=== PATIENT | male | born 1960 | race Caucasian/White ===

== ENCOUNTER 2024-11-02 18:27 | Observation (INO) ==
[2024-11-02 19:03] LABS: Basophils # (auto) 0.08 K/uL (0.00-0.20); Basophils % (auto) 0.9 %; Eosinophils # (auto) 0.05 K/uL (0.00-0.50); Eosinophils % (auto) 0.5 %; Hematocrit (blood only) 57.1 % (42.0-52.0); Hemoglobin 19.7 g/dl (14.0-18.0); Immature Granulocytes # (auto) 0.11 K/uL (0.01-0.20); Immature Granulocytes % (auto) 1.2 %; Lymphocytes # (auto) 1.45 K/uL (1.20-3.40); Lymphocytes % (auto) 15.7 %; Mean Corpuscular Hemoglobin 31.1 pg (25.0-34.0); Mean Corpuscular Hgb Conc 34.5 g/dL (32.0-36.0); Mean Corpuscular Volume 90.1 fL (80.0-100.0); Mean Platelet Volume 9.4 fL (9.4-12.4); Monocytes # (auto) 0.82 K/uL (0.11-0.59); Monocytes % (auto) 8.9 %; Neutrophils % (auto) 72.8 %; Platelet Count 228 K/uL (130-400); RDW Coefficient of Variation 13.2 % (11.5-14.5); RDW Standard Deviation 43.6 fL (36.4-46.3); Red Blood Count 6.34 M/uL (4.70-6.10); White Blood Count 9.21 K/ul (4.8-10.8)
[2024-11-02 19:24] LABS: Albumin Globulin Ratio 1.5 (0.9-2); Albumin Level 4.7 gm/dl (3.4-5.0); BUN Creatinine Ratio 24.5 (10-20); Bilirubin,Total 1.4 mg/dl (0.2-1.0); Calcium 10.2 mg/dl (8.6-10.3); Creatinine Clr Calc Pharmacy 92.9 ml/min; Globulin 3.1 gm/dl (2.5-4.0); Potassium 4.4 mmol/L (3.5-5.1); Total Protein 7.8 gm/dl (6.0-8.3)
[2024-11-02] MEDS: SODIUM CHLORIDE 0.9% 1,000 ML IV ONE (19:45)
--- NOTE | 2024-11-02 19:46 | Emergency Department Note ---
Impression & Plan SBO (small bowel obstruction), Diverticulosis, Vomiting, Acute dehydration ED Provider Note NAME: ADRIANA DODD AGE: 64 SEX: M : 1960 ARRIVES VIA: Walk-In INFORMANT: Patient, ED PROVIDER(S): Jeronimo Armstrong DO CHIEF COMPLAINT: Vomiting HPI: The patient is a 64-year-old male who presented to the emergency department for an evaluation of nausea vomiting. The patient states he has had lower abdominal pain over the last 24 hours. He is noticed nausea as well as vomiting. The patient denies having any fever. He denies having any dysuria or frequency. He denies having any back pain or chest pain. He said no recent trauma. The patient also is very anxious. ROS: See above HPI for pertinent positives & negatives. A total of 10 systems reviewed and were otherwise negative. PAST MEDICAL HISTORY: See Below PAST SURGICAL HISTORY: See Below FAMILY HISTORY: See Below SOCIAL HISTORY: See Below HOME MEDICATIONS: See Below ALLERGIES: See Below VITALS: See Below PHYSICAL EXAMINATION: GENERAL: Patient is awake alert in no acute distress patient is resting comfortably and showing no signs of anxiety EYES: The conjunctivae are clear. The pupils are round and reactive. EARS, NOSE, MOUTH AND THROAT: The nose is without any evidence of any deformity. Mucous membranes are moist. Tongue is midline. NECK: The neck is nontender and supple. RESPIRATORY: Normal respiratory effort is noted there is no evidence of wheezing rhonchi or rales CARDIOVASCULAR: Regular rate and rhythm noted there no murmurs rubs or gallops normal S1 normal S2. GASTROINTESTINAL: The abdomen is soft and moderately distended. There is no guarding rigidity noted. MUSCULOSKELETAL/EXTREMITIES: There is no evidence of gross deformity full range of motion is noted in the hips and shoulders. SKIN: There is no obvious evidence of any rash. There are no petechiae, pallor or cyanosis noted. NEUROLOGIC: Patient is awake alert and oriented x3. Gait was steady. MEDICAL DECISION MAKING: The patient is a 64-year-old male who presented to the emergency department for an evaluation of nausea and vomiting. The patient complained of lower abdominal pain. He has no surgical history. He has no history of bowel obstruction. He was also very anxious. He was treated with IV fluids and IV antiemetics. I discussed the patient's laboratory and radiographic studies with him. He does appear to have dilated loops of small bowel that could be consistent with bowel obstruction. He was not actively vomiting so I did not order an NG tube. I discussed the patient's condition with the on-call [facility] hospitalist. They have agreed to evaluate the patient in the emergency department for further management and disposition. Triage Nursing notes reviewed. Prior medical records reviewed Vital Signs: reviewed and remarkable for no significant abnormalities Differential diagnosis: Gastroenteritis, food borne illness, infections, appendicitis, diverticulitis, inflammatory bowel disease, obstruction, GI bleed, biliary pathology, volvulus, as well as other pathologies. ER treatment provided: See below Diagnostics interpreted by me: ECG: none Cardiac Monitoring: An order was placed for continuous cardiac monitoring. The monitor shows a rate of 76 bpm with sinus rhythm. Laboratory studies: As stated above and show below. Imaging studies: See below. Radiographic imaging was reviewed by myself Consultation(s): I discussed this case with Dr. Raeves who is on-call for the [facility] Hospitalist group. Past Med/Surg History Problem List (Updated 11/02/24 @ 23:35 by Jeronimo Armstrong DO) Acute dehydration (Acute) Vomiting (Acute) Diverticulosis (Acute) SBO (small bowel obstruction) (Acute) Social History Smoking Status: Never smoker Feels Safe at Home: Yes Results & Data (ED) Vital Signs Vital Signs - 24 hr 11/02/24 18:36 11/02/24 19:44 11/02/24 21:00 Temperature 37.2 C Temperature Source Temporal Artery Scan Pulse Rate 87 Pulse Rate [Finger] 86 94 H Pulse Rhythm [Finger] Regular Pulse Strength [Finger] Normal Respiratory Rate 16 22 20 Respiratory Effort / Characteristics Non-Labored Spontaneous Non-Labored Spontaneous Respiratory Depth Normal Normal Respiratory Pattern Regular Blood Pressure 130/88 Blood Pressure [Right Arm] 142/100 H 134/93 Blood Pressure Mean 102 Blood Pressure Mean [Right Arm] 114 106 Blood Pressure Position Sitting Blood Pressure Position [Right Arm] Lying Pulse Oximetry 92 93 93 Oxygen Delivery Method Room Air Room Air Room Air Sepsis Recent Fever Within 48 Hours No Sepsis New/Unexplained Change in Mental Status N/A Sepsis Action Taken by Nursing No Action Required 11/02/24 23:00 Temperature Temperature Source Pulse Rate Pulse Rate [Finger] 76 Pulse Rhythm [Finger] Regular Pulse Strength [Finger] Normal Respiratory Rate 17 Respiratory Effort / Characteristics Non-Labored Respiratory Depth Normal Respiratory Pattern Regular Blood Pressure Blood Pressure [Right Arm] 108/82 Blood Pressure Mean Blood Pressure Mean [Right Arm] 90 Blood Pressure Position Blood Pressure Position [Right Arm] Lying Pulse Oximetry 92 Oxygen Delivery Method Room Air Sepsis Recent Fever Within 48 Hours Sepsis New/Unexplained Change in Mental Status Sepsis Action Taken by Assisted Medications Current Medication List: was personally reviewed by me Laboratory Data Attestation: I reviewed the patient's lab results. 11/02/24 18:46 11/02/24 18:46 Lab Results 11/02/24 Range/Units 18:46 WBC 9.21 (4.8-10.8) K/ul RBC 6.34 H (4.70-6.10) M/uL Hgb 19.7 H (14.0-18.0) g/dl Hct 57.1 H (42.0-52.0) % MCV 90.1 (80.0-100.0) fL MCH 31.1 (25.0-34.0) pg MCHC 34.5 (32.0-36.0) g/dL RDW Std Deviation 43.6 (36.4-46.3) fL RDW Coeff of Zoila 13.2 (11.5-14.5) % Plt Count 228 (130-400) K/uL MPV 9.4 (9.4-12.4) fL Immature Gran % (Auto) 1.2 % Neut % (Auto) 72.8 % Lymph % (Auto) 15.7 % [place] % (Auto) 8.9 % Eos % (Auto) 0.5 % Baso % (Auto) 0.9 % Neut # (Auto) 6.70 H (1.40-6.50) K/uL Lymph # (Auto) 1.45 (1.20-3.40) K/uL [place] # (Auto) 0.82 H (0.11-0.59) K/uL Eos # (Auto) 0.05 (0.00-0.50) K/uL Baso # (Auto) 0.08 (0.00-0.20) K/uL Immature Gran # (Auto) 0.11 (0.01-0.20) K/uL Sodium 141 (136-145) mmol/L Potassium 4.4 (3.5-5.1) mmol/L Chloride 104 (98-107) mmol/L Carbon Dioxide 30 (21-32) mmol/L Anion Gap 7 (3-11) BUN 25 H (6-23) mg/dl Creatinine 1.02 (0.6-1.4) mg/dl Est Cr Clr Drug Dosing 92.9 ml/min eGFR 82.07 BUN/Creatinine Ratio 24.5 H (10-20) Glucose 144 H (70-99(Fasting)) mg/dl Calcium 10.2 (8.6-10.3) mg/dl Total Bilirubin 1.4 H (0.2-1.0) mg/dl AST 26 (13-39) U/L ALT 35 (7-52) U/L Alkaline Phosphatase 57 (34-104) U/L Total Protein 7.8 (6.0-8.3) gm/dl Albumin 4.7 (3.4-5.0) gm/dl Globulin 3.1 (2.5-4.0) gm/dl Albumin/Globulin Ratio 1.5 (0.9-2) Lipase 51 (11-82) U/L Administered Medications Discontinued Medications Diphenhydramine HCl (Diphenhydramine 50 Mg/Ml Vial) 25 mg IV NOW STA Stop: 11/02/24 19:43 Last Admin: 11/02/24 20:13 Dose: Not Given Documented By: ANMOL Sodium Chloride (Nss) 1,000 mls @ 999 mls/hr IV .Q1H1M ONE Stop: 11/02/24 20:38 Last Infusion: 11/02/24 22:06 Dose: Infused Documented By: Admin: 11/02/24 19:45 Dose: 999 mls/hr Documented By: SHIMON Ioversol (Optiray 320 100ml) 94 ml IV ONCE ONE Stop: 11/02/24 20:17 Last Admin: 11/02/24 20:16 Dose: 94 ml Documented By: TC Ondansetron HCl (Ondansetron Inj 2 Mg/Ml 2 Ml Vial) 4 mg IV NOW STA Stop: 11/02/24 19:39 Last Admin: 11/02/24 19:55 Dose: 4 mg Documented By: ANMOL Imaging Data Attestation: I personally reviewed and interpreted this imaging study as follows: My Impression: See T the abdomen and pelvis was obtained in the emergency department. My interpretation is no free air, dilated stomach as well as dilated loops of small bowel are noted, final report below. Radiologist's Impression: Abdomen/Pelvis CT 11/02/24 19:38 Exam(s): CT ABDOMEN + PELVIS With Contrast IV Amt: 94 ml opti 320 EXAM: CT Abdomen and Pelvis With Intravenous Contrast CLINICAL HISTORY: Reason for exam: Vomiting. TECHNIQUE: Axial computed tomography images of the abdomen and pelvis with intravenous contrast. CTDI is 28.28 mGy and DLP is 1535.53 mGy-cm. Automated exposure control was utilized for the study. A dose lowering technique was utilized adhering to the principles of ALARA. CONTRAST: Patient received 94 ml Optiray 320 of IV contrast COMPARISON: No relevant prior studies available. FINDINGS: Lung bases: Trace amount of scattered subsegmental atelectasis in the lung bases. ABDOMEN: Liver: Mild fatty infiltration of the liver. No focal liver lesion is seen. Gallbladder and bile ducts: Noncalcified gallstones measuring up to 2.2 cm within a nondilated gallbladder. No pericholecystic inflammation is seen. Pancreas: Unremarkable. No mass. No ductal dilation. Spleen: Unremarkable. No splenomegaly. Adrenals: Unremarkable. No mass. Kidneys and ureters: Unremarkable. No solid mass. No hydronephrosis. Stomach and bowel: There are scattered gas fluid levels within distended but nondilated proximal small bowel and stomach. The distal small bowel is completely decompressed. No abrupt transition point is identified. There is diverticulosis of the left and sigmoid colon without evidence of acute diverticulitis. No pneumoperitoneum, free fluid, or abscess. The appendix is normal. PELVIS: Appendix: See above. Bladder: Unremarkable. No mass. Reproductive: Unremarkable as visualized. ABDOMEN and PELVIS: Intraperitoneal space: See above. Bones/joints: Mild degenerative changes in the spine. No acute fracture or subluxation is seen. Soft tissues: Unremarkable. Vasculature: Unremarkable. No abdominal aortic aneurysm. Lymph nodes: Unremarkable. No enlarged lymph nodes. IMPRESSION: 1. There are scattered gas fluid levels within distended but nondilated proximal small bowel and stomach. The distal small bowel is completely decompressed. No abrupt transition point is identified. Consider ileus and/or enteritis versus mid small bowel obstruction. 2. Noncalcified gallstones measuring up to 2.2 cm within a nondilated gallbladder. No pericholecystic inflammation is seen. 3. There is diverticulosis of the left and sigmoid colon without evidence of acute diverticulitis. No pneumoperitoneum, free fluid, or abscess. The appendix is normal. 4. Nonobstructive 3 mm calcific calculus in the upper pole the left kidney. No hydronephrosis or ureterolithiasis is seen. Electronically signed by: Al Mckeon MD 11/02/24 23:12 PM Discharge Plan Visit Data Chief Complaint: Vomiting Stated Complaint: GI ISSUES, ANXIETY, CRAMPING, VOMT ED Provider: Jeronimo Armstrong Discharge Problem: SBO (small bowel obstruction), Diverticulosis, Vomiting, Acute dehydration Patient Disposition: Being Evaluated by Hospitalist Forms Stand Alone Forms: [facility] Referrals Referrals: PCP,NO [Primary Care Provider] - Discharge Problem: Vomiting Qualifiers: Vomiting type: unspecified Nausea presence: with nausea Qualified Code(s): R 11.2 - Nausea with vomiting, unspecified
[2024-11-02] MEDS: ONDANSETRON INJ 2 MG/ML 2 ML VIAL IV STA (19:55)
[2024-11-02] MEDS: diphenhydrAMINE 50 MG/ML VIAL IV STA (20:13)
[2024-11-02] MEDS: OPTIRAY 320 100ml IV ONE (20:16)
--- NOTE | 2024-11-02 23:13 | CT Scan Report ---
Exam(s): CT ABDOMEN + PELVIS With Contrast IV Amt: 94 ml opti 320 EXAM: CT Abdomen and Pelvis With Intravenous Contrast CLINICAL HISTORY: Reason for exam: Vomiting. TECHNIQUE: Axial computed tomography images of the abdomen and pelvis with intravenous contrast. CTDI is 28.28 mGy and DLP is 1535.53 mGy-cm. Automated exposure control was utilized for the study. A dose lowering technique was utilized adhering to the principles of ALARA. CONTRAST: Patient received 94 ml Optiray 320 of IV contrast COMPARISON: No relevant prior studies available. FINDINGS: Lung bases: Trace amount of scattered subsegmental atelectasis in the lung bases. ABDOMEN: Liver: Mild fatty infiltration of the liver. No focal liver lesion is seen. Gallbladder and bile ducts: Noncalcified gallstones measuring up to 2.2 cm within a nondilated gallbladder. No pericholecystic inflammation is seen. Pancreas: Unremarkable. No mass. No ductal dilation. Spleen: Unremarkable. No splenomegaly. Adrenals: Unremarkable. No mass. Kidneys and ureters: Unremarkable. No solid mass. No hydronephrosis. Stomach and bowel: There are scattered gas fluid levels within distended but nondilated proximal small bowel and stomach. The distal small bowel is completely decompressed. No abrupt transition point is identified. There is diverticulosis of the left and sigmoid colon without evidence of acute diverticulitis. No pneumoperitoneum, free fluid, or abscess. The appendix is normal. PELVIS: Appendix: See above. Bladder: Unremarkable. No mass. Reproductive: Unremarkable as visualized. ABDOMEN and PELVIS: Intraperitoneal space: See above. Bones/joints: Mild degenerative changes in the spine. No acute fracture or subluxation is seen. Soft tissues: Unremarkable. Vasculature: Unremarkable. No abdominal aortic aneurysm. Lymph nodes: Unremarkable. No enlarged lymph nodes. IMPRESSION: 1. There are scattered gas fluid levels within distended but nondilated proximal small bowel and stomach. The distal small bowel is completely decompressed. No abrupt transition point is identified. Consider ileus and/or enteritis versus mid small bowel obstruction. 2. Noncalcified gallstones measuring up to 2.2 cm within a nondilated gallbladder. No pericholecystic inflammation is seen. 3. There is diverticulosis of the left and sigmoid colon without evidence of acute diverticulitis. No pneumoperitoneum, free fluid, or abscess. The appendix is normal. 4. Nonobstructive 3 mm calcific calculus in the upper pole the left kidney. No hydronephrosis or ureterolithiasis is seen. Electronically signed by: Al Mckeon MD 11/02/24 23:12 PM
[2024-11-03] MEDS: LORazepam 1 MG/1 ML SYR ED Inj Use IV STA (00:12)
--- NOTE | 2024-11-03 01:52 | History & Physical Report ---
Date of Service November 03, 2024 Assessment & Plan (1) SBO (small bowel obstruction): Plan: 64-year-old male with past medical history significant for hyperlipidemia, hypertension, BPH, anxiety,concussion, PTSD, mood disorder, presents with nausea, vomiting and abdominal pain. Patient states having abdominal pain for last couple of weeks but today it got very severe. Pain is in the lower abdomen. No radiation. Today vomited 3 times.Currently with the the medications pain and nausea improved. He had a bowel movement in the ER. No fevers. No chest pain or shortness of breath. No cough. No headache. No runny nose or sore throat. No headache. Vision is okay. Ambulates okay. Currently resting comfortably and hemodynamically stable. Possible small bowel obstruction Presents with nausea vomiting and abdominal pain Acute dehydration CT scan showing possible enteritis/ileus versus obstruction Patient has no abdominal surgeries Currently symptoms improved with meds N.p.o., IV fluids, pain meds as needed, antiemetics as needed Medical floor Surgery consult for further recommendations Hypertension On losartan, prazosin and propranolol Anxiety PTSD Mood disorder Continue home medications. Prediabetes will follow hba1c levels BPH On prazosin and Proscar Hyperlipidemia On statin DVT prophylaxis Lovenox Disposition Medical floor Full code. History of Present Illness Chief Complaint: Nausea vomiting and abdominal pain Primary Care Provider: NO PCP 64-year-old male with past medical history significant for hyperlipidemia, hypertension, prediabetes,BPH, anxiety, concussion, PTSD, mood disorder, presents with nausea, vomiting and abdominal pain. Patient states having abdominal pain for last couple of weeks but today it got very severe. Pain is in the lower abdomen. No radiation. Today vomited 3 times.Currently with the the medications pain and nausea improved. He had a bowel movement in the ER. No fevers. No chest pain or shortness of breath. No cough. No headache. No runny nose or sore throat. No headache. Vision is okay. Ambulates okay. Currently resting comfortably and hemodynamically stable. Past medical history. As mentioned above Past surgical history. Rhinoplasty. Bronchoscopy. Social history. No smoking. Alcohol rarely. No drugs. Family history. Father had CHF. Mother had COPD. Allergies Allergy/AdvReac Type Severity Reaction Status Date / Time No Known Allergies Allergy Verified 11/03/24 01:34 Home Medications Medication Instructions Recorded Confirmed Type armodafinil 250 mg tablet 250 mg PO DAILY 11/03/24 11/03/24 History atorvastatin 20 mg tablet 20 mg PO HS 11/03/24 11/03/24 History buspirone 10 mg tablet 10 mg PO BID 11/03/24 11/03/24 History cyclosporine 0.05 % eye drops in a 2 drp OPB BID 11/03/24 11/03/24 History dropperette (Restasis) donepezil 10 mg tablet 20 mg PO HS 11/03/24 11/03/24 History finasteride 5 mg tablet 5 mg PO DAILY 11/03/24 11/03/24 History hydroxyzine HCl 50 mg tablet 50 mg PO Q8H PRN Anxiety 11/03/24 11/03/24 History lorazepam 1 mg tablet 1.5 mg PO QPM 11/03/24 11/03/24 History losartan 25 mg tablet 25 mg PO DAILY 11/03/24 11/03/24 History meloxicam 15 mg tablet 15 mg PO DAILY 11/03/24 11/03/24 History memantine 10 mg tablet 10 mg PO BID 11/03/24 11/03/24 History ondansetron 8 mg disintegrating 8 mg PO Q8H 11/03/24 11/03/24 History tablet prazosin 1 mg capsule 2 mg PO AMPM 11/03/24 11/03/24 History propranolol 20 mg tablet 20 mg PO AMPM 11/03/24 11/03/24 History quetiapine 50 mg tablet 50 mg PO HS 11/03/24 11/03/24 History quetiapine 50 mg tablet 50 mg PO HS 11/03/24 11/03/24 History testosterone cypionate 200 mg/mL 100 mg IM WK 11/03/24 11/03/24 History intramuscular oil Past Med/Surg History Problem List Acute dehydration (Acute) Vomiting (Acute) Diverticulosis (Acute) SBO (small bowel obstruction) (Acute) Social History Smoking Status: Never smoker Hx Alcohol Use: Yes Alcohol type: beer Hx Substance Use: Yes Last Used Substance: Days (ago) Last Used Substance Other:: about 1 ago. Substance Use Type Other:: CBD Gummy per report. Preferred Language: Persian Communication Ability: Effective Can Pusher Required: No Beliefs That Will Affect Care: None Feels Safe at Home: Yes Assistive Devices: None Review of Systems Review of Systems: All systems reviewed & are unremarkable except as noted in HPI & below Physical Exam Physical Exam: General- Not in distress Head- atraumatic Eyes- PERRL. ENT- oropharynx clear Neck- supple, no JVD. Lungs- clear to auscultation no wheezing or crackles Heart- regular rate and rhythm; no murmur, no gallop. Abdomen- normal bowel sounds, soft, mild discomfort, no distension Extremities- no pretibial edema, no erythema seen Neuro- alert, oriented PERRL, no facial palsy; no dysarthria; moves extremities Results & Data Results & Data Vital Signs (Past 12 Hours) Vital Signs Temp Pulse Pulse Resp BP BP Pulse Ox 11/03/24 01:00 77 18 130/92 91 11/02/24 23:00 76 17 108/82 92 11/02/24 21:00 94 H 20 134/93 93 11/02/24 19:44 86 22 142/100 H 93 11/02/24 18:36 37.2 C 87 16 130/88 92 O2 Del Method 11/03/24 01:00 Room Air 11/02/24 23:00 Room Air 11/02/24 21:00 Room Air 11/02/24 19:44 Room Air 11/02/24 18:36 Room Air Diagnostic Findings Laboratory Results WBC 9.21 K/ul (4.8-10.8) 11/02/24 18:46 RBC 6.34 M/uL (4.70-6.10) H 11/02/24 18:46 Hgb 19.7 g/dl (14.0-18.0) H 11/02/24 18:46 Hct 57.1 % (42.0-52.0) H 11/02/24 18:46 MCV 90.1 fL (80.0-100.0) 11/02/24 18:46 MCH 31.1 pg (25.0-34.0) 11/02/24 18:46 MCHC 34.5 g/dL (32.0-36.0) 11/02/24 18:46 RDW Std Deviation 43.6 fL (36.4-46.3) 11/02/24 18:46 RDW Coeff of Zoila 13.2 % (11.5-14.5) 11/02/24 18:46 Plt Count 228 K/uL (130-400) 11/02/24 18:46 MPV 9.4 fL (9.4-12.4) 11/02/24 18:46 Immature Gran % (Auto) 1.2 % 11/02/24 18:46 Neut % (Auto) 72.8 % 11/02/24 18:46 Lymph % (Auto) 15.7 % 11/02/24 18:46 [place] % (Auto) 8.9 % 11/02/24 18:46 Eos % (Auto) 0.5 % 11/02/24 18:46 Baso % (Auto) 0.9 % 11/02/24 18:46 Neut # (Auto) 6.70 K/uL (1.40-6.50) H 11/02/24 18:46 Lymph # (Auto) 1.45 K/uL (1.20-3.40) 11/02/24 18:46 [place] # (Auto) 0.82 K/uL (0.11-0.59) H 11/02/24 18:46 Eos # (Auto) 0.05 K/uL (0.00-0.50) 11/02/24 18:46 Baso # (Auto) 0.08 K/uL (0.00-0.20) 11/02/24 18:46 Immature Gran # (Auto) 0.11 K/uL (0.01-0.20) 11/02/24 18:46 Sodium 141 mmol/L (136-145) 11/02/24 18:46 Potassium 4.4 mmol/L (3.5-5.1) 11/02/24 18:46 Chloride 104 mmol/L (98-107) 11/02/24 18:46 Carbon Dioxide 30 mmol/L (21-32) 11/02/24 18:46 Anion Gap 7 (3-11) 11/02/24 18:46 BUN 25 mg/dl (6-23) H 11/02/24 18:46 Creatinine 1.02 mg/dl (0.6-1.4) 11/02/24 18:46 Est Cr Clr Drug Dosing 92.9 ml/min 11/02/24 18:46 eGFR 82.07 11/02/24 18:46 BUN/Creatinine Ratio 24.5 (10-20) H 11/02/24 18:46 Glucose 144 mg/dl (70-99(Fasting)) H 11/02/24 18:46 Calcium 10.2 mg/dl (8.6-10.3) 11/02/24 18:46 Total Bilirubin 1.4 mg/dl (0.2-1.0) H 11/02/24 18:46 AST 26 U/L (13-39) 11/02/24 18:46 ALT 35 U/L (7-52) 11/02/24 18:46 Alkaline Phosphatase 57 U/L (34-104) 11/02/24 18:46 Total Protein 7.8 gm/dl (6.0-8.3) 11/02/24 18:46 Albumin 4.7 gm/dl (3.4-5.0) 11/02/24 18:46 Globulin 3.1 gm/dl (2.5-4.0) 11/02/24 18:46 Albumin/Globulin Ratio 1.5 (0.9-2) 11/02/24 18:46 Lipase 51 U/L (11-82) 11/02/24 18:46 Impressions Abdomen/Pelvis CT 11/02/24 19:38 Exam(s): CT ABDOMEN + PELVIS With Contrast IV Amt: 94 ml opti 320 EXAM: CT Abdomen and Pelvis With Intravenous Contrast CLINICAL HISTORY: Reason for exam: Vomiting. TECHNIQUE: Axial computed tomography images of the abdomen and pelvis with intravenous contrast. CTDI is 28.28 mGy and DLP is 1535.53 mGy-cm. Automated exposure control was utilized for the study. A dose lowering technique was utilized adhering to the principles of ALARA. CONTRAST: Patient received 94 ml Optiray 320 of IV contrast COMPARISON: No relevant prior studies available. FINDINGS: Lung bases: Trace amount of scattered subsegmental atelectasis in the lung bases. ABDOMEN: Liver: Mild fatty infiltration of the liver. No focal liver lesion is seen. Gallbladder and bile ducts: Noncalcified gallstones measuring up to 2.2 cm within a nondilated gallbladder. No pericholecystic inflammation is seen. Pancreas: Unremarkable. No mass. No ductal dilation. Spleen: Unremarkable. No splenomegaly. Adrenals: Unremarkable. No mass. Kidneys and ureters: Unremarkable. No solid mass. No hydronephrosis. Stomach and bowel: There are scattered gas fluid levels within distended but nondilated proximal small bowel and stomach. The distal small bowel is completely decompressed. No abrupt transition point is identified. There is diverticulosis of the left and sigmoid colon without evidence of acute diverticulitis. No pneumoperitoneum, free fluid, or abscess. The appendix is normal. PELVIS: Appendix: See above. Bladder: Unremarkable. No mass. Reproductive: Unremarkable as visualized. ABDOMEN and PELVIS: Intraperitoneal space: See above. Bones/joints: Mild degenerative changes in the spine. No acute fracture or subluxation is seen. Soft tissues: Unremarkable. Vasculature: Unremarkable. No abdominal aortic aneurysm. Lymph nodes: Unremarkable. No enlarged lymph nodes. IMPRESSION: 1. There are scattered gas fluid levels within distended but nondilated proximal small bowel and stomach. The distal small bowel is completely decompressed. No abrupt transition point is identified. Consider ileus and/or enteritis versus mid small bowel obstruction. 2. Noncalcified gallstones measuring up to 2.2 cm within a nondilated gallbladder. No pericholecystic inflammation is seen. 3. There is diverticulosis of the left and sigmoid colon without evidence of acute diverticulitis. No pneumoperitoneum, free fluid, or abscess. The appendix is normal. 4. Nonobstructive 3 mm calcific calculus in the upper pole the left kidney. No hydronephrosis or ureterolithiasis is seen. Electronically signed by: Al Mckeon MD 11/02/24 23:12 PM Code Status & VTE Plan VTE Prophylaxis Plan VTE Prophylaxis will be ordered: Yes
[2024-11-03] MEDS: busPIRone 5 MG TAB PO STA (02:26)
[2024-11-03] MEDS: PRAZOSIN HCL 1 MG CAP PO STA (02:26)
[2024-11-03] MEDS: DONEPEZIL HCL 10 MG TAB PO STA (02:27)
[2024-11-03] MEDS: QUEtiapine FUMARATE 25 MG TABLET PO STA (02:27)
[2024-11-03] MEDS ORDERED: hydrOXYzine HCl 25 MG TAB PO PRN (02:55)
[2024-11-03] MEDS ORDERED: HYDROmorphone INJ 0.5 MG/0.5 ML SYR IV PRN ×2 (02:55)
[2024-11-03] MEDS ORDERED: ONDANSETRON INJ 2 MG/ML 2 ML VIAL IV PRN (02:55)
[2024-11-03] MEDS: D5W AND 1/2NSS 1,000 ML IV SCH (03:11)
--- NOTE | 2024-11-03 03:29 | Surgery Consultation ---
<Statement entered by Tara Cassidy DO - 11/03/24 14:48> I have seen and examined this patient whose symptoms resolved shortly after admission and has been advanced per medicine. Surgery will sign off at this time. Please re-consult or call with questions. Date of Consultation November 03, 2024 Assessment & Plan (1) SBO (small bowel obstruction): Patient has been admitted on the hospitalist service. From surgery perspective we recommend the following: Based on the patient's CT scan physical exam findings and currently does not appear the patient has a definite small bowel obstruction. Additional etiologies include possible gastroenteritis or small bowel enteritis. Patient is noted to have cholelithiasis but no evidence of cholecystitis so biliary colic may be at play as well. Would recommend providing as needed antiemetics Recommend hydrating with intravenous fluids Would recommend keeping n.p.o. for the present time and consideration be given to advancing the patient's diet beginning with clear liquids as his symptoms improve The patient's abdominal exam worsens or his symptomatology returns consideration may be given to placing an NG tube but at the present time and I feel this modality is needed as the patient has not had any emesis in several hours and he has also had a bowel movement since arrival to the emergency department If the patient does have waxing and waning over recurrent symptoms consideration can be given to reimaging his abdomen utilizing oral contrast for better delineation of his intra-abdominal anatomy If the patient does have waxing or waning or recurrent symptoms but no definite signs of small bowel obstruction consideration be given to consulting gastroenterology for further recommendations Additional recommendations with forthcoming based on his clinical course unfolds. The present time the patient is nontoxic-appearing as he is normotensive without tachycardia or fever and he also does not exhibit leukocytosis or acute kidney injury History of Present Illness Reason for Consultation: Possible small bowel obstruction Attending Physician: Jameson Campo DO History of Present Illness This is a 64-year-old male who presented to the emergency department secondary to nausea and vomiting as well as abdominal pain. Patient notes that he has been having some generalized abdominal pain for what he describes as approximately 1 month. He says that his symptoms wax and wane but earlier today his pain got very severe. He notes that the pain is in his lower abdomen without radiation or other modifying factors. Patient said that he had several bouts of emesis earlier today which [facility] Patient says he has never had abdominal surgery before. He has never had an evaluation by ct scan technician. With his current symptoms he denies any hematemesis. He does note that he has not had any emesis since arrival to the emergency department. He also notes that he had a bowel movement since arrival to the emergency department. He has noted that since he had this bowel movement his symptomatology has improved. Since Saturday emergency department the patient has had labs and imaging which I independent reviewed. Labs include a CBC were white blood cell count platelet count were normal. His hemoglobin and hematocrit were 19.7 and 57.1. Chemistry profile showed sodium and potassium were normal. He had a slight elevation of his BUN at 25 and his creatinine was not elevated at 1.0. He did have a slight elevation of his total bilirubin of 1.4 but his LFTs were otherwise unremarkable. His lipase was not elevated. A CT scan of the abdomen pelvis was performed. This showed some scattered gas fluid levels within the proximal small bowel which appeared distended but nondilated. His stomach was also noted to be distended. His distal small bowel was completely decompressed. There is no specific transition point identified therefore the interpreting radiologist felt that this likely represented an ileus or enteritis or small bowel obstruction could not be excluded. Patient was noted to have cholelithiasis but no signs of cholecystitis were noted. There is no pneumoperitoneum or free fluid. There is also no evidence of appendicitis or diverticulitis. At the time of my interview he was resting comfortably in bed he was no distress. Allergies Allergy/AdvReac Type Severity Reaction Status Date / Time No Known Allergies Allergy Verified 11/03/24 01:34 Home Medications Medication Instructions Recorded Confirmed Type armodafinil 250 mg tablet 250 mg PO DAILY 11/03/24 11/03/24 History atorvastatin 20 mg tablet 20 mg PO HS 11/03/24 11/03/24 History buspirone 10 mg tablet 10 mg PO BID 11/03/24 11/03/24 History cyclosporine 0.05 % eye drops in a 2 drp OPB BID 11/03/24 11/03/24 History dropperette (Restasis) donepezil 10 mg tablet 20 mg PO HS 11/03/24 11/03/24 History finasteride 5 mg tablet 5 mg PO DAILY 11/03/24 11/03/24 History hydroxyzine HCl 50 mg tablet 50 mg PO Q8H PRN Anxiety 11/03/24 11/03/24 History lorazepam 1 mg tablet 1.5 mg PO QPM 11/03/24 11/03/24 History losartan 25 mg tablet 25 mg PO DAILY 11/03/24 11/03/24 History meloxicam 15 mg tablet 15 mg PO DAILY 11/03/24 11/03/24 History memantine 10 mg tablet 10 mg PO BID 11/03/24 11/03/24 History ondansetron 8 mg disintegrating 8 mg PO Q8H 11/03/24 11/03/24 History tablet prazosin 1 mg capsule 2 mg PO AMPM 11/03/24 11/03/24 History propranolol 20 mg tablet 20 mg PO AMPM 11/03/24 11/03/24 History quetiapine 50 mg tablet 50 mg PO HS 11/03/24 11/03/24 History quetiapine 50 mg tablet 50 mg PO HS 11/03/24 11/03/24 History testosterone cypionate 200 mg/mL 100 mg IM WK 11/03/24 11/03/24 History intramuscular oil Patient History Social History Smoking Status: Never smoker Hx Alcohol Use: Yes Alcohol type: beer Hx Substance Use: Yes Last Used Substance: Days (ago) Last Used Substance Other:: about 1 ago. Substance Use Type Other:: CBD Gummy per report. Preferred Language: Slovenian Communication Ability: Effective Automobile Locator Required: No Beliefs That Will Affect Care: None Feels Safe at Home: Yes Assistive Devices: None Review of Systems Review of Systems: All systems reviewed & are unremarkable except as noted in HPI & below Physical Exam Constitutional: WD/WN, vitals as above Eyes: no conjunctival abnormality ENMT: Ears: no hearing impairment and no external ear abnormality Mouth: no oropharynx abnormality Neck: trachea midline Respiratory: normal respiratory effort; no respiratory distress and no labored breathing Cardiovascular: Rate/Rhythm: regular rate and regular rhythm Gastrointestinal (Abdomen): At the time of my exam the patient's abdomen is noted to be soft without distention. There is no tympany to percussion. Patient had no pain with palpation and no rebound tenderness or guarding. Musculoskeletal: No calf tenderness Skin: no rashes Neurologic: moves all extremities Psychiatric: A+Ox3, euthymic affect Results & Data Vital Signs (Past 12 Hours) Vital Signs Temp Pulse Pulse Resp BP BP Pulse Ox 11/03/24 02:57 36.6 C 86 18 145/93 H 93 11/03/24 02:41 80 18 102/57 L 92 11/03/24 01:00 77 18 130/92 91 11/02/24 23:00 76 17 108/82 92 11/02/24 21:00 94 H 20 134/93 93 11/02/24 19:44 86 22 142/100 H 93 11/02/24 18:36 37.2 C 87 16 130/88 92 O2 Del Method 11/03/24 02:57 Room Air 11/03/24 02:41 Room Air 11/03/24 01:00 Room Air 11/02/24 23:00 Room Air 11/02/24 21:00 Room Air 11/02/24 19:44 Room Air 11/02/24 18:36 Room Air PG Care Time/CCT Total # of Minutes Spent Total Time Spent with Patient: Total time spent is greater than 50% in coordination of care (as documented) at patient's floor/unit and/or counseling patient: Coding Level of Care Code 80158 IN/OBS CONSULT LVL 5,80M Diagnoses SBO (small bowel obstruction) K56.609
[2024-11-03] MEDS: ENOXAPARIN INJ 40 MG/0.4 ML SYR SQ SCH (06:04)
[2024-11-03] MEDS: FAMOTIDINE 20MG IV PUSH 20 MG/5 ML SYR IV SCH (06:04)
[2024-11-03] MEDS: busPIRone 5 MG TAB PO SCH (08:21)
[2024-11-03] MEDS: PRAZOSIN HCL 1 MG CAP PO SCH (08:21)
[2024-11-03] MEDS: LOSARTAN POTASSIUM 25 MG TAB PO SCH (08:22)
[2024-11-03] MEDS: MEMANTINE HCL 10 MG TAB PO SCH ×2 (08:22→22:36)
[2024-11-03] MEDS: PROPRANOLOL HCL 20 MG TAB PO SCH (08:23)
[2024-11-03] MEDS: FINASTERIDE 5 MG TAB PO SCH (08:23)
[2024-11-03 08:24] LABS: BUN Creatinine Ratio 25.5 (10-20); Calcium 8.5 mg/dl (8.6-10.3); Magnesium 1.9 mg/dl (1.7-2.4); Potassium 3.9 mmol/L (3.5-5.1)
[2024-11-03 08:29] LABS: Basophils # (auto) 0.05 K/uL (0.00-0.20); Basophils % (auto) 0.9 %; Eosinophils # (auto) 0.18 K/uL (0.00-0.50); Eosinophils % (auto) 3.1 %; Hematocrit (blood only) 50.5 % (42.0-52.0); Hemoglobin 16.6 g/dl (14.0-18.0); Immature Granulocytes # (auto) 0.06 K/uL (0.01-0.20); Lymphocytes # (auto) 1.83 K/uL (1.20-3.40); Lymphocytes % (auto) 31.1 %; Mean Corpuscular Hemoglobin 30.3 pg (25.0-34.0); Mean Corpuscular Hgb Conc 32.9 g/dL (32.0-36.0); Mean Corpuscular Volume 92.3 fL (80.0-100.0); Mean Platelet Volume 9.2 fL (9.4-12.4); Monocytes % (auto) 15.3 %; Neutrophils # (auto) 2.86 K/uL (1.40-6.50); Neutrophils % (auto) 48.6 %; Platelet Count 163 K/uL (130-400); RDW Coefficient of Variation 13.4 % (11.5-14.5); Red Blood Count 5.47 M/uL (4.70-6.10); White Blood Count 5.88 K/ul (4.8-10.8)
[2024-11-03 09:01] LABS: Estimated Average Glucose 134 mg/dl; Hemoglobin A1C 6.3 % (4.5-5.6)
--- NOTE | 2024-11-03 13:39 | Hospitalist Progress Note ---
Date of Service November 03, 2024 Assessment & Plan (1) Viral gastroenteritis: (2) Ileus due to infection: (3) Diverticulosis: Plan Patient initially presented with questionable partial small bowel obstruction on imaging. Clinically does not present as a small bowel obstruction. Patient had bowel movement in ED. Patient requesting to eat, will advance diet Saline lock IV fluids Monitor for recurrent symptoms Reviewed surgical consultation. No indication for intervention at this time. Significant other at bedside updated Admission and Anticipated Discharge Date Admission Date: November 03, 2024 Subjective Patient up and ambulating. No recurrent abdominal pain. Asking to eat eggs and steak. Asking to shower Physical Exam Physical Exam: Constitutional: Alert, no acute distress HEENT: Mucous membranes moist. Lungs: Clear to auscultation, decreased, no wheezes rales or rhonchi CV: S1-S2, regular Abdomen: Soft, nontender, nondistended, no guarding, no rigidity, slightly decreased bowel sounds Extremities: No significant edema Neuro: No focal deficits Psych: Cooperative, normal mood Results & Data Results & Data Vital Signs (Past 12 Hours) Vital Signs Temp Pulse Pulse Resp BP BP Pulse Ox 11/03/24 07:59 36.4 C L 73 16 127/75 91 11/03/24 02:57 36.6 C 86 18 145/93 H 93 11/03/24 02:41 80 18 102/57 L 92 O2 Del Method 11/03/24 07:59 Room Air 11/03/24 02:57 Room Air 11/03/24 02:41 Room Air Diagnostic Findings Reviewed imaging, laboratory and diagnostic studies. Pertinent findings as below. CBC stable BMP stable Glucose 157 Hemoglobin A1c 6.3%
[2024-11-03] MEDS ORDERED: LORazepam 1 MG TAB PO PRN (16:21)
[2024-11-03] MEDS: FAMOTIDINE 20 MG TAB PO SCH (22:01)
[2024-11-03] MEDS: LORazepam 0.5 MG TAB PO SCH (22:01)
[2024-11-03] MEDS: QUEtiapine FUMARATE 25 MG TABLET PO SCH (22:32)
[2024-11-03] MEDS: DONEPEZIL HCL 10 MG TAB PO SCH (22:33)
[2024-11-03] MEDS: ATORVASTATIN 20 MG TAB PO SCH (22:33)
[2024-11-04] MEDS: ARMODAFINIL PO SCH (09:07)
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
--- NOTE | 2024-11-04 12:28 | Discharge Summary ---
Discharge Summary Date of Service November 04, 2024 Principal Dx & Hospital Course #1 = Principal Diagnosis (1) Viral gastroenteritis: (2) Ileus due to infection: (3) Irritable bowel syndrome (IBS): (4) Diverticulosis: (5) Generalized anxiety disorder: (6) PTSD (post-traumatic stress disorder): (7) Prediabetes: Plan Patient presented to the emergency room with abdominal pain. Initial imaging was concerning for possible small bowel obstruction. Patient was cared for in the hospital. Initially made n.p.o. and given IV fluid resuscitation. Surgical consultation was obtained. They reviewed the patient's imaging and on exam felt that his presentation was not consistent with a small bowel obstruction if anything an ileus. Patient actually had a bowel movement in the ED. The following day he is significantly improved with his symptoms and his diet was advanced. During this time patient displayed some significant anxiety. He was extremely upset after overhearing conversation with his roommate and their provider. Was so upsetting that he requested a another room. He also requested to speak with counselor. Psychiatry consultation was obtained. Patient subsequently shared that he had significant generalized anxiety and posttraumatic stress disorder. He is going through his difficult divorce and having issues with the care of his son. Further history revealed that he has been having bowel issues for quite some time. Some intermittent diarrhea some intermittent constipation. Recently had influenza A where his bowel symptoms seem to get a little bit worse subsequently. Suspect patient has a component of irritable bowel syndrome induced by his mental health issues and some somatic complaints associated with his mental health issues exacerbated by postinfectious ileus and gastroenteritis. On the day of discharge patient had tolerated his diet. Other vital signs are stable. He was seen by psychiatry. They recommended he is seeking a psychiatrist outpatient but no medication changes. He did not meet any criteria for inpatient behavioral health unit. He will be given some counseling on good bowel regimen. Recommend MiraLAX on a daily basis as well as Bentyl as needed for abdominal cramping. He be discharged home to follow-up with his outpatient providers. Notes For Next Care Provider Patient's hemoglobin A1c 6.3%, may need additional evaluation and treatment for prediabetes Medication Changes From Visit MiraLAX added daily Bentyl as needed for cramping Admission HPI Per Admitting Provider 64-year-old male with past medical history significant for hyperlipidemia, hypertension, prediabetes,BPH, anxiety, concussion, PTSD, mood disorder, presents with nausea, vomiting and abdominal pain. Patient states having abdominal pain for last couple of weeks but today it got very severe. Pain is in the lower abdomen. No radiation. Today vomited 3 times.Currently with the the medications pain and nausea improved. He had a bowel movement in the ER. No fevers. No chest pain or shortness of breath. No cough. No headache. No runny nose or sore throat. No headache. Vision is okay. Ambulates okay. Currently resting comfortably and hemodynamically stable. Past medical history. As mentioned above Past surgical history. Rhinoplasty. Bronchoscopy. Social history. No smoking. Alcohol rarely. No drugs. Family history. Father had CHF. Mother had COPD. Admission Exam Per Admitting Provider See H&P Discharge Exam Constitutional: Alert, nontoxic HEENT: Mucous membranes moist. Lungs: Clear to auscultation, decreased, no wheezes rales or rhonchi CV: S1-S2, regular Abdomen: Soft, nontender, nondistended Extremities: No significant edema Neuro: No focal deficits Psych: Cooperative, anxious, standing and pacing in room Updated Medication List Medication Instructions Recorded Confirmed Type armodafinil 250 mg tablet 250 mg PO DAILY 11/03/24 11/03/24 History atorvastatin 20 mg tablet 20 mg PO HS 11/03/24 11/03/24 History buspirone 10 mg tablet 10 mg PO BID 11/03/24 11/03/24 History cyclosporine 0.05 % eye drops in a 2 drp OPB BID 11/03/24 11/03/24 History dropperette (Restasis) donepezil 10 mg tablet 20 mg PO HS 11/03/24 11/03/24 History finasteride 5 mg tablet 5 mg PO DAILY 11/03/24 11/03/24 History hydroxyzine HCl 50 mg tablet 50 mg PO Q8H PRN Anxiety 11/03/24 11/03/24 History lorazepam 1 mg tablet 1.5 mg PO QPM 11/03/24 11/03/24 History losartan 25 mg tablet 25 mg PO DAILY 11/03/24 11/03/24 History meloxicam 15 mg tablet 15 mg PO DAILY 11/03/24 11/03/24 History memantine 10 mg tablet 10 mg PO BID 11/03/24 11/03/24 History ondansetron 8 mg disintegrating 8 mg PO Q8H 11/03/24 11/03/24 History tablet prazosin 1 mg capsule 2 mg PO AMPM 11/03/24 11/03/24 History propranolol 20 mg tablet 20 mg PO AMPM 11/03/24 11/03/24 History quetiapine 50 mg tablet 50 mg PO HS 11/03/24 11/03/24 History quetiapine 50 mg tablet 50 mg PO HS 11/03/24 11/03/24 History testosterone cypionate 200 mg/mL 100 mg IM WK 11/03/24 11/03/24 History intramuscular oil dicyclomine 10 mg capsule 10 mg PO QID PRN abdominal cramps 11/04/24 Rx #30 caps polyethylene glycol 3350 17 gram 17 g PO DAILY 30 days #30 ea 11/04/24 Rx oral powder packet (Miralax) Hospital Stay Data Consultations 11/02/24 23:33 ED Decision to Admit Stat 11/03/24 08:00 Consult General Surgery Routine 11/03/24 16:04 Consult Psychiatry Routine Diagnostic Imagining Performed 11/02/24 19:38 CT abd pelvis IV con only Stat Reviewed imaging, laboratory and diagnostic studies. Pertinent findings as below. Hemoglobin 16.6 Platelets 163 Electrolytes within normal range Hemoglobin A1c 6.3% Pending Results Patient Have Any Pending Studies at Discharge: No Discharge Instructions Given to Patient (Per Discharging Provider) Strongly encourage you to establish with a psychiatrist at home Your blood glucoses were elevated here in the hospital. Some initial testing shows possibly early diabetes. Please follow-up with your PCP to investigate this further and determine if any treatment is needed. Total Time Total Time Spent Total Time Spent (In Minutes): 39
== END 2024-11-04 17:00 | disposition home or self-care (01) | DRG 392 ==
LOC: ED 18:27 → 3W 11-03 01:29 → INTOOBSV 11-03 01:29 → 3W 11-03 02:41